=== PATIENT | female | born 1950 | race Hispanic/Latino ===

== ENCOUNTER → 2017-08-11 | Outpatient (CLI) | payer MEDICARE ==
[~2017-08-11] MED LIST: DIATRIZOATE MEGL/DIATRIZOA SOD 30 ML BTL PO ONE; IOPAMIDOL 370 MG/ML 200 ML INFUS..BTL INJ ONE; SODIUM CHLORIDE 0.9% 50ML 50 ML ONE
[2017-08-11 10:37] LABS: BLOOD UREA NITROGEN 19 mg/dL (7-26); BUN/CREATININE RATIO 26 (6-25); CREATININE, SERUM 0.72 mg/dL (0.57-1.11); EST GLOMERULAR FILTRATION RATE > 60 ML/MIN (60-)
--- NOTE | 2017-08-11 11:49 | Diagnostic Imaging Report ---
EXAM: CT Abdomen and Pelvis WITH contrast INDICATION: \[id number] \S\[id number] \S\RECURRENT VENTRAL HERNIA COMPARISON: None. TECHNIQUE: Abdomen and pelvis were scanned utilizing a multidetector helical scanner from the lung base to the pubic symphysis after administration of IV contrast. Coronal and sagittal reformations were obtained. Routine protocol was performed. Scan was performed when during portal venous phase. IV CONTRAST: 100 mL of Isovue-370 ORAL CONTRAST: Gastroview COMPLICATIONS: None RADIATION DOSE: Total DLP: 651.27 mGy*cm Estimated effective dose: (DLP x 0.015 x size factor) mSv CTDIvol has been reviewed. It is below the limits set by the Radiation Protocol Committee (RPC). FINDINGS: LINES and TUBES: None. LOWER THORAX: Unremarkable HEPATOBILIARY: 1.5 cm segment 4 hypodensity (series 2, image 20) cannot be characterized on this single phase study. Otherwise, no focal hepatic lesions. No biliary ductal dilation. GALLBLADDER: Cholecystectomy. SPLEEN: No splenomegaly. PANCREAS: No focal masses or ductal dilatation. ADRENALS: No adrenal nodules KIDNEYS/URETERS: Kidneys enhance symmetrically. No hydronephrosis. Multiple bilateral renal hypodensities, the largest in the posterior right midpole measuring 1.6 cm, representing a cyst. The additional subcentimeter hypodensities are too small to characterize. Additionally, there are bilateral parapelvic cysts. No stones. GI TRACT: No abnormal distention, wall thickening, or evidence of bowel obstruction. Moderate size hiatal hernia. Appendix is normal. PELVIC ORGANS/BLADDER: Unremarkable. LYMPH NODES: No lymphadenopathy. VESSELS: Unremarkable. PERITONEUM / RETROPERITONEUM: No free air or fluid. BONES: L5 pars defects with grade 2, L5-S1 spondylolisthesis. Left inferior pubic ramus sclerotic focus, likely a bone island (series 2, image 79). SOFT TISSUES: Ventral hernia measuring 17.4 x 7.1 x 10.5 cm with neck measuring 4.7 cm, containing omental fat, small bowel loops, and a segment of transverse colon. Left buttock injection granulomas. IMPRESSION: 1. Large ventral hernia, containing omental fat, small bowel loops, and a segment of transverse colon. No evidence of bowel obstruction. 2. Multiple bilateral renal hypodensities, likely cysts. There are also parapelvic cysts. Recommend further evaluation with nonurgent renal ultrasound. 3. Moderate size hiatal hernia. Signed by: Dr. Marky Sloan MD on 08/11/2017 11:45 AM
== END ==
LOC: CT 09:59
PROVIDERS: ATTEND Surgery
DX: K43.2 Incisional hernia without obstruction or gangrene (principal)
CPT/HCPCS: 36415; 74177; 82565; 84520; Q9967

== ENCOUNTER → 2019-07-31 | Outpatient (CLI) | payer MEDICARE ==
--- NOTE | 2019-07-31 12:37 | Diagnostic Imaging Report ---
EXAMINATION: CHEST 2 VIEWS INDICATION: Chronic cough COMPARISON: None FINDINGS: LINES/TUBES:None LUNGS:The lungs are well-inflated. No focal consolidation or pulmonary edema. PLEURA:No pleural effusion or pneumothorax. MEDIASTINUM:The cardiomediastinal silhouette appears normal in size and shape. BONES/SOFT TISSUES:No acute osseous injury. ABDOMEN:No free air under the diaphragm. IMPRESSION: No focal pneumonia or pulmonary edema. Signed by: Mckayla Garcia MD on 07/31/2019 12:34 PM
== END ==
LOC: RAD 11:24
PROVIDERS: ATTEND Family Medicine
DX: R05 Cough (principal)
CPT/HCPCS: 71046